=== PATIENT | male | born 1995 | race African-American/Black ===

== ENCOUNTER 2023-12-26 20:06 | Emergency (ER) | payer SELFPAY ==
[~2023-12-26] VITALS: Ht 162.6 cm; Wt 64.0 kg
[2023-12-26 20:15] VITALS: TEMP 98.5; O2SAT 100
[2023-12-26] MEDS: DEXAMETHASONE 4MG/ML 1ML VIAL IM ONE (20:45)
[2023-12-26] MEDS: HYDROCODONE/ACETAMINOPHEN 5/325MG TABLET PO ONE (20:45)
[2023-12-26 21:12] LABS: BASOPHILS % 0.9 % (0.0-2.0); EOSINOPHILS % 6.1 % (0.0-5.0); HEMATOCRIT. 45.4 % (42.0-52.0); HEMOGLOBIN. 15.4 g/dL (14.0-18.0); MEAN CORPUSCULAR HEMOGLOBIN 32.1 pg (28.0-32.0); MEAN CORPUSCULAR HGB CONC 33.9 g/dL (31.0-37.0); MEAN CORPUSCULAR VOLUME 94.5 fL (80.0-94.0); MEAN PLATELET VOLUME 8.4 fl (7.4-10.4); PLATELET 334 x1000/uL (130-400); RED CELL DISTRIBUTION WIDTH 13.4 % (11.6-14.6); WHITE BLOOD COUNT 8.2 x1000/uL (4.5-11.0)
[2023-12-26 21:19] LABS: CHLORIDE 106 mEq/L (98-107); POTASSIUM 3.7 mEq/L (3.5-5.1); SODIUM 138 mEq/L (136-145)
[2023-12-26 21:20] LABS: CALCIUM 9.5 mg/dL (8.7-10.4); CARBON DIOXIDE 24 mEq/L (21-32)
[2023-12-26 21:25] LABS: CREATININE 0.9 mg/dL (0.6-1.3); GLUCOSE 95 mg/dL (70-105); UREA NITROGEN BLOOD 7 mg/dL (9-23)
[2023-12-26 21:27] LABS: ALANINE AMINOTRANSFERASE 85 IU/L (10-49); ALBUMIN 4.5 g/dL (3.2-4.8); ASPARTATE AMINOTRANSFERASE 46 IU/L (<34)
[2023-12-26 21:28] LABS: BILIRUBIN TOTAL 0.3 mg/dL (0.1-1.0); PROTEIN TOTAL 8.1 g/dL (6.0-8.3)
[2023-12-26 21:32] LABS: BILIRUBIN DIRECT < 0.1 mg/dL (<=3.0)
[2023-12-26 21:48] LABS: ERYTHROCYTE SEDIMENTATION RATE 4 mm/hr (0-15)
[2023-12-26] MEDS ORDERED: MED4 MT (22:32)
[2023-12-26] MEDS ORDERED: DIPH25TA24 MT (22:32)
[2023-12-26] MEDS ORDERED: IBUP-2029 MT (22:32)
[2023-12-26 22:38] VITALS: BP 133/71; PULSE 74; RESP 16
== END 2023-12-26 22:42 | disposition home or self-care (01) ==
LOC: ER 20:06
DX: L30.9 Dermatitis, unspecified (principal); Z79.899 Other long term (current) drug therapy
CPT/HCPCS: 99283; 86592; 80076; 80048; 85025; 85651; 36415; 96372; J1100

== ENCOUNTER 2024-07-06 07:31 | Emergency (ER) | payer MEDICAID ==
[~2024-07-06] VITALS: Ht 165.1 cm; Wt 95.0 kg
[~2024-07-06 07:31] MED LIST: DIPH25TA24 MT; IBUP-2029 MT; METH4TAB95 MT
[2024-07-06 07:45] VITALS: BP 134/81
[2024-07-06] MEDS ORDERED: DEXAMETHASONE 1MG TABLET PO ONE (08:00)
[2024-07-06 08:18] VITALS: TEMP 98.9
[2024-07-06] MEDS: DEXAMETHASONE 4MG TABLET PO NR (08:18)
[2024-07-06] MEDS: ACETAMINOPHEN 325MG TABLET PO ONE (08:18)
[2024-07-06] MEDS: ALBUTEROL (0.083%) 2.5MG/3ML NEB HHN SCH (08:26)
[2024-07-06 08:27] VITALS: PULSE 95; RESP 26; O2SAT 93
[2024-07-06] MEDS: IPRATROPIUM BROMIDE (0.02%) 0.5MG/2.5ML NEB HHN STA (08:27)
== END 2024-07-06 10:14 | disposition home or self-care (01) ==
LOC: ER 07:31
DX: J45.901 Unspecified asthma with (acute) exacerbation (principal); B34.9 Viral infection, unspecified; Z79.899 Other long term (current) drug therapy; Z20.822 Contact with and (suspected) exposure to COVID-19
CPT/HCPCS: 87804 ×2; 71045; 94644; 99291; 87426; J8540; Z7610 ×3; 94640

== ENCOUNTER 2024-08-18 20:42 | Emergency (ER) | payer MEDICAID, OTHER ==
[~2024-08-18] VITALS: Ht 172.7 cm; Wt 82.0 kg
[2024-08-18] MEDS: METHYLPREDNISOLONE SOD SUCC 125MG/2ML (ACT-O-VIAL) IV STA (20:47)
[2024-08-18 20:50] VITALS: BP 147/81; TEMP 36.8; O2SAT 99
[2024-08-18] MEDS: IPRATROPIUM BROMIDE (0.02%) 0.5MG/2.5ML NEB HHN STA (21:13)
[2024-08-18] MEDS: ALBUTEROL (0.083%) 2.5MG/3ML NEB HHN STA (21:14)
[2024-08-18 21:27] VITALS: PULSE 84; RESP 18
[2024-08-18] MEDS: SODIUM CHLORIDE 0.9% 1,000 ML IV ONE (21:54)
[2024-08-18] MEDS: MAGNESIUM 2 G PREMIX 50 ML IV ONE (21:54)
[2024-08-18 21:55] LABS: BASOPHILS % 0.4 % (0.0-2.0); EOSINOPHILS % 4.2 % (0.0-5.0); HEMATOCRIT. 46.4 % (42.0-52.0); LYMPHOCYTES % 10.7 % (20.0-50.0); MEAN CORPUSCULAR HEMOGLOBIN 30.6 pg (28.0-32.0); MEAN CORPUSCULAR HGB CONC 32.4 g/dL (31.0-37.0); MEAN CORPUSCULAR VOLUME 94.5 fL (80.0-94.0); MEAN PLATELET VOLUME 8.8 fl (7.4-10.4); MONOCYTES % 11.7 % (2.0-8.0); PLATELET 233 x1000/uL (130-400); RED BLOOD CELL COUNT 4.91 mill/uL (4.7-6.1); RED CELL DISTRIBUTION WIDTH 13.3 % (11.6-14.6); WHITE BLOOD COUNT 11.1 x1000/uL (4.5-11.0)
[2024-08-18 22:03] LABS: CHLORIDE 104 mEq/L (98-107); POTASSIUM 3.4 mEq/L (3.5-5.1); SODIUM 140 mEq/L (136-145)
[2024-08-18 22:04] LABS: CALCIUM 9.4 mg/dL (8.7-10.4); CARBON DIOXIDE 27 mEq/L (21-32)
[2024-08-18 22:08] LABS: CREATININE 0.9 mg/dL (0.6-1.3)
[2024-08-18 22:09] LABS: GLUCOSE 104 mg/dL (70-105); UREA NITROGEN BLOOD 16 mg/dL (9-23)
[2024-08-18 22:10] LABS: TROPONIN I HIGH SENSITIVITY 11 ng/L (3.0-53)
[2024-08-18] MEDS ORDERED: ALBU18HF2 IH (22:18)
[2024-08-18] MEDS ORDERED: P50 MT (22:18)
== END 2024-08-19 01:49 | disposition left against medical advice (07) ==
LOC: ER 20:53
DX: J45.901 Unspecified asthma with (acute) exacerbation (principal); Z79.899 Other long term (current) drug therapy
CPT/HCPCS: 80048; 85025; 84484; 36415; 71045; 94640; 96365; 96375; 99285; J3475; J2919; Z7610 ×3; J7030; 99284

== ENCOUNTER 2024-09-26 10:13 | Emergency (ER) | payer OTHER ==
[~2024-09-26] VITALS: Ht 170.2 cm; Wt 64.0 kg
[~2024-09-26 10:13] MED LIST changes: +ALBU18HF2 IH; +P50 MT
[2024-09-26 10:19] VITALS: O2SAT 96
[2024-09-26] MEDS: ACETAMINOPHEN 325MG TABLET PO STA (10:51)
[2024-09-26] MEDS: MAGNESIUM/ALUMINUM HYDROXIDE/SIMETHICONE 30ML UDC PO STA (10:51)
[2024-09-26 10:52] LABS: BASOPHILS % 0.9 % (0.0-2.0); HEMOGLOBIN. 15.5 g/dL (14.0-18.0); LYMPHOCYTES % 25.2 % (20.0-50.0); MEAN CORPUSCULAR HEMOGLOBIN 30.7 pg (28.0-32.0); MEAN CORPUSCULAR VOLUME 92.9 fL (80.0-94.0); MEAN PLATELET VOLUME 8.6 fl (7.4-10.4); MONOCYTES % 11.3 % (2.0-8.0); NEUTROPHILS % 58.6 % (40.0-76.0); PLATELET 260 x1000/uL (130-400); RED BLOOD CELL COUNT 5.06 mill/uL (4.7-6.1); RED CELL DISTRIBUTION WIDTH 13.5 % (11.6-14.6); WHITE BLOOD COUNT 5.7 x1000/uL (4.5-11.0)
[2024-09-26] MEDS: KETOROLAC 30MG/ML VIAL IM STA (10:52)
[2024-09-26] MEDS: ONDANSETRON 4MG ODT PO STA (10:52)
[2024-09-26 10:54] VITALS: BP 143/84; PULSE 73; RESP 16; TEMP 36.6; O2SAT 96
[2024-09-26 11:01] LABS: CHLORIDE 108 mEq/L (98-107); POTASSIUM 3.6 mEq/L (3.5-5.1); SODIUM 141 mEq/L (136-145)
[2024-09-26 11:02] LABS: CARBON DIOXIDE 26 mEq/L (21-32)
[2024-09-26 11:03] LABS: CALCIUM 9.1 mg/dL (8.7-10.4)
[2024-09-26 11:07] LABS: GLUCOSE 99 mg/dL (70-105)
[2024-09-26 11:08] LABS: UREA NITROGEN BLOOD 12 mg/dL (9-23)
[2024-09-26 11:09] LABS: ALANINE AMINOTRANSFERASE 70 IU/L (10-49); ALBUMIN 4.1 g/dL (3.2-4.8); ASPARTATE AMINOTRANSFERASE 58 IU/L (<34)
[2024-09-26 11:10] LABS: BILIRUBIN DIRECT 0.2 mg/dL (<=3.0); BILIRUBIN TOTAL 0.7 mg/dL (0.1-1.0); PROTEIN TOTAL 7.6 g/dL (6.0-8.3)
[2024-09-26] MEDS ORDERED: ONDA-239 PO (11:20)
== END 2024-09-26 11:25 | disposition home or self-care (01) ==
LOC: ER 10:13
DX: K52.9 Noninfective gastroenteritis and colitis, unspecified (principal); J45.909 Unspecified asthma, uncomplicated
CPT/HCPCS: 99284; 71045; 80076; 80048; 83690; 85025; 36415; 96372; J1885; Q0162

== ENCOUNTER 2025-04-04 08:05 | Emergency (ER) | payer OTHER ==
[~2025-04-04] VITALS: Ht 172.7 cm; Wt 78.0 kg
[~2025-04-04 08:05] MED LIST changes: +IBUP-1455 MT; -IBUP-2029 MT; +ONDA-239 PO
[2025-04-04 08:07] VITALS: O2SAT 100
[2025-04-04] MEDS ORDERED: LIDO-53 TP (08:22)
[2025-04-04] MEDS ORDERED: KETO10TA2 MT (08:23)
[2025-04-04] MEDS: LIDOCAINE 5% PATCH TOP SCH (08:27)
[2025-04-04] MEDS: KETOROLAC 15MG/ML VIAL IM ONE (08:27)
[2025-04-04 08:31] VITALS: BP 126/83; PULSE 72; RESP 16; TEMP 36.7; O2SAT 98
== END 2025-04-04 08:35 | disposition home or self-care (01) ==
LOC: ER 08:16
DX: M25.511 Pain in right shoulder (principal); J45.909 Unspecified asthma, uncomplicated; Z79.899 Other long term (current) drug therapy
CPT/HCPCS: 73030; 96372; 99283; J1885; Z7610 ×2